=== PATIENT | female | born 1960 | race Caucasian/White ===

== ENCOUNTER 2017-01-01 18:38 | Emergency (ER) | payer BC ==
[~2017-01-01] VITALS: Ht 154.9 cm; Wt 53.7 kg
[~2017-01-01 18:38] MED LIST: AMOX TR-K CLV1 EAC3 PO; BENADRYL ALLERG25 MG PO; CHERATUSSIN AC473 ML PO; COLACE100 MG PO; FLEXERIL10 MG PO; INVOKANA300 MG PO; IRBESARTAN150 MG PO; KOMBIGLYZE XR1 EAC2 PO; LANTUS 3 M100 UNITS1 SC; LEVOXYL88 MCG PO; LOW DOSE ASPIRI81 M1 PO; MOBIC15 MG PO; MYCOSTATIN 100,60 ML PO; NORCO 5/3251 TABLET PO; NOVOLOG PE100 UNITS/ SC; OXYCODONE HCL15 MG PO; OXYCONTIN10 MG PO; POTASSIUM CHLO10 ME4 PO; PREDNISONE10 MG PO; SENNA LAX8.6 MG PO; SIMVASTATIN40 MG PO
[2017-01-01 19:19] LABS: MCH 29.3 PG (29.0-34.0); MCHC 33.1 G/DL (30.0-36.0); MCV 88.4 FL (83-99); PLATELET COUNT 173 K/uL (156-360); RBC DIS.WIDTH-CV 13.7 % (11.8-14.6); RBC DIS.WIDTH-SD 44.2 % (39-53); RED BLOOD COUNT 4.41 M/uL (3.80-5.20); WHITE BLOOD COUNT 8.1 K/uL (4.1-10.2)
[2017-01-01 19:30] LABS: CHLORIDE 102 mEq/L (99-109); POTASSIUM 4.1 mEq/L (3.7-5.4); SODIUM 136 mEq/L (136-147)
[2017-01-01 19:31] LABS: ADD MIUA? YES; BILIRUBIN NEGATIVE; BLOOD MODERATE; COLOR AMBER ((YELLOW)); KETONES 5; LEUKOCYTES NEGATIVE; NITRITE NEGATIVE; PROTEIN (STRIP) 30; SPECIFIC GRAVITY 1.021 (1.000-1.030)
[2017-01-01 19:32] LABS: GLUCOSE 216 mg/dL (70-99)
[2017-01-01 19:34] LABS: ANION GAP 9 MEQ/L (2-14)
[2017-01-01 19:36] LABS: ALKALINE PHOSPHATASE 136 IU/L (3-129); GFR ESTIMATE (CALCULATED) > 59 mL/min/
[2017-01-01 19:37] LABS: UREA NITROGEN (BUN) 11 mg/dL (9-23)
[2017-01-01 19:51] LABS: GLUCOSE (STRIP) 500
[2017-01-01 20:26] LABS: AMYLASE 9 IU/L (1-118)
[2017-01-01 20:33] LABS: EPITHELIAL CELLS 1+ /HPF
[2017-01-01 20:34] LABS: LIPASE 4 U/L (1.0-51.0)
[2017-01-01 20:35] LABS: TROP-I INTERPRETATION NEGATIVE; TROPONIN-I < 0.01 ng/mL (0.0-0.30)
[2017-01-01 20:53] LABS: BACTERIA 2+ /HPF; CRYSTALS PRESENT; UCUL ADDED? YES
[2017-01-01 20:54] LABS: CALCIUM OXALATE CRYSTALS 3+ /HPF
[2017-01-01 20:55] LABS: CASTS PRESENT /LPF; HYALINE CASTS RARE /LPF; MUCUS 3+ /LPF
[2017-01-01 23:57] VITALS: BP 127/76
[2017-01-01] MEDS ORDERED: PROTONIX40 MG PO (23:59)
[2017-01-01] MEDS ORDERED: ZANTAC300 MG PO (23:59)
[2017-01-02] MEDS ORDERED: KEFLEX500 MG PO
== END 2017-01-02 00:48 | disposition home or self-care (01) ==
LOC: EME 18:38
PROVIDERS: Physician Assistant
DX: K29.70 Gastritis, unspecified, without bleeding (principal); N39.0 Urinary tract infection, site not specified; Z85.07 Personal history of malignant neoplasm of pancreas; E11.9 Type 2 diabetes mellitus without complications; Z79.4 Long term (current) use of insulin; Z79.82 Long term (current) use of aspirin; Z79.891 Long term (current) use of opiate analgesic; F17.200 Nicotine dependence, unspecified, uncomplicated
CPT/HCPCS: 71020; 74177; 80053; 81003; 82150; 83690; 84484; 85027; 87086; 93005; 99281; 99284; J0696; J2405; J3010; J7030; J7050

== ENCOUNTER 2018-03-22 17:07 | Inpatient (IN) | payer BC ==
[~2018-03-22] VITALS: Ht 154.9 cm; Wt 50.4 kg
[~2018-03-22 17:07] MED LIST changes: +KEFLEX500 MG PO; -LEVOXYL88 MCG PO; +OXYCODONE HCL10 MG PO; -OXYCODONE HCL15 MG PO; +PROTONIX40 MG PO; +SYNTHROID137 MCG PO; +ZANTAC300 MG PO
[2018-03-22 17:56] LABS: BASOPHIL (%) 0.6 % (0-1); EOSINOPHIL (%) 2.9 % (0-5); EOSINOPHIL COUNT 0.2 K/uL (0-0.3); HEMATOCRIT 37.9 % (36.0-46.0); HEMOGLOBIN 13.4 G/DL (11.9-15.5); IMMATURE GRANULOCYTE (%) 0.4 % (0.0-0.7); LYMPHOCYTE (%) 18.7 % (15-42); LYMPHOCYTE COUNT 1.3 K/uL (1.0-2.8); MCH 30.1 PG (29.0-34.0); MCHC 35.4 G/DL (30.0-36.0); MCV 85.2 FL (83-99); MONOCYTE (%) 4.8 % (3-12); MONOCYTE COUNT 0.3 K/uL (0-0.8); NEUTROPHIL (%) 72.6 % (45-76); PLATELET COUNT 202 K/uL (156-360); RBC DIS.WIDTH-CV 14.9 % (11.8-14.6); RBC DIS.WIDTH-SD 44.4 % (39-53); RED BLOOD COUNT 4.45 M/uL (3.80-5.20); WHITE BLOOD COUNT 6.9 K/uL (4.1-10.2)
[2018-03-22 18:07] LABS: ALBUMIN 4.1 g/dL (3.2-4.8)
[2018-03-22 18:08] LABS: CHLORIDE 104 mEq/L (99-109); POTASSIUM 3.6 mEq/L (3.7-5.4); SODIUM 137 mEq/L (136-147)
[2018-03-22 18:10] LABS: GLUCOSE 260 mg/dL (70-99); TOTAL PROTEIN 7.3 g/dL (6.4-8.3)
[2018-03-22 18:12] LABS: TOTAL BILIRUBIN 0.7 mg/dL (0.0-1.0)
[2018-03-22 18:14] LABS: ALKALINE PHOSPHATASE 269 IU/L (3-129); CREATININE 0.7 mg/dL (0.6-1.3); GFR ESTIMATE (CALCULATED) > 59 mL/min/
[2018-03-22 18:15] LABS: AST (GOT) 21 IU/L (2-34); UREA NITROGEN (BUN) 8 mg/dL (9-23)
[2018-03-22 18:17] LABS: ALT (GPT) 40 IU/L (3-49); LIPASE 701 U/L (1.0-51.0)
[2018-03-22 19:37] LABS: APPEARANCE CLEAR ((CLEAR)); BILIRUBIN NEGATIVE; BLOOD SMALL; COLOR YELLOW ((YELLOW)); GLUCOSE (STRIP) >=500; KETONES 20; LEUKOCYTES NEGATIVE; NITRITE NEGATIVE; PROTEIN (STRIP) NEGATIVE; SPECIFIC GRAVITY 1.024 (1.000-1.030); UROBILINOGEN 0.2 MG/DL (0.2-1.0)
[2018-03-22 19:45] LABS: BACTERIA NONE SEEN /HPF; EPITHELIAL CELLS RARE /HPF; MUCUS NONE SEEN /LPF; UCUL ADDED? NO; WHITE BLOOD CELLS 0-5 /HPF (0-5)
[2018-03-22] MEDS ORDERED: LEVEMIR100 UNIT/2 SC (20:01)
[2018-03-22] MEDS ORDERED: VITAMIN D31000 UNIT PO (20:02)
[2018-03-22] MEDS ORDERED: XARELTO10 MG PO (20:02)
[2018-03-22] MEDS ORDERED: LOSARTAN POTASS25 MG PO (20:02)
[2018-03-22] MEDS ORDERED: ACYCLOVIR400 MG PO (20:02)
[2018-03-22] MEDS ORDERED: MAGIC MOUTHWASH PO (20:02)
[2018-03-22] MEDS ORDERED: COMPAZINE10 MG PO (20:03)
[2018-03-22] MEDS ORDERED: ERGOCALCIF50000 UNIT PO (20:03)
[2018-03-22] MEDS ORDERED: CREON DR 3,0001 EACH PO ×2 (20:03)
[2018-03-22] MEDS ORDERED: OMEPRAZOLE20 MG PO (20:04)
[2018-03-22 23:24] VITALS: BP 95/53
[2018-03-23 03:48] VITALS: BP 152/72
[2018-03-23 07:40] VITALS: BP 123/67
[2018-03-23 16:25] VITALS: BP 130/74
[2018-03-23 23:31] VITALS: BP 124/64
[2018-03-24 02:57] VITALS: BP 132/76
[2018-03-24 06:14] LABS: HEMATOCRIT 31.1 % (36.0-46.0); MCHC 33.1 G/DL (30.0-36.0); MCV 87.6 FL (83-99); PLATELET COUNT 168 K/uL (156-360); RBC DIS.WIDTH-CV 15.5 % (11.8-14.6); RBC DIS.WIDTH-SD 47.6 % (39-53); WHITE BLOOD COUNT 3.3 K/uL (4.1-10.2)
[2018-03-24 06:29] LABS: HEMOGLOBIN 10.3 G/DL (11.9-15.5); RED BLOOD COUNT 3.55 M/uL (3.80-5.20)
[2018-03-24 06:36] LABS: CHLORIDE 109 MEQ/L (99-109); CREATININE 0.5 MG/DL (0.6-1.3); GFR ESTIMATE (CALCULATED) > 59 mL/min/; GLUCOSE 169 mg/dL (70-99); POTASSIUM 3.1 MEQ/L (3.7-5.4); SODIUM 140 MEQ/L (136-147); UREA NITROGEN (BUN) 5 mg/dL (9-23)
[2018-03-24 07:16] VITALS: BP 131/74
[2018-03-24 13:04] LABS: HEMOGLOBIN A1c (GLYCOHEMOGLOB) 9.7 % (Below 5.7)
[2018-03-24 15:52] VITALS: BP 133/78
[2018-03-24 18:13] LABS: C DIFF TOXIN POSITIVE (NEGATIVE)
[2018-03-24 23:17] VITALS: BP 137/72
[2018-03-25 07:23] VITALS: BP 122/80
[2018-03-25] MEDS ORDERED: LYRICA75 MG PO (13:27)
== END 2018-03-25 15:16 | disposition home or self-care (01) | DRG 439 ==
LOC: EME 17:07 → EDOF 20:37 → 5EAST 20:37 → ENRESERV 20:39 → 5EAST 21:55
PROVIDERS: Emergency Medicine; Family Medicine; Internal Medicine
DX: K85.90 Acute pancreatitis without necrosis or infection, unspecified (principal); C25.9 Malignant neoplasm of pancreas, unspecified; C78.7 Secondary malignant neoplasm of liver and intrahepatic bile duct; R19.7 Diarrhea, unspecified; E11.65 Type 2 diabetes mellitus with hyperglycemia; K86.81 Exocrine pancreatic insufficiency; E03.9 Hypothyroidism, unspecified; E78.5 Hyperlipidemia, unspecified; I10 Essential (primary) hypertension; K21.9 Gastro-esophageal reflux disease without esophagitis; F17.210 Nicotine dependence, cigarettes, uncomplicated; Z85.41 Personal history of malignant neoplasm of cervix uteri; Z79.4 Long term (current) use of insulin; Z79.899 Other long term (current) drug therapy; Z88.5 Allergy status to narcotic agent; Z80.0 Family history of malignant neoplasm of digestive organs
CPT/HCPCS: 74177; 80048; 80053; 81003; 82948; 83036; 83690; 85025; 85027; 87493; 99281; 99285; J0692; J1815; J2270; J2405; J3010; J7030